=== PATIENT | female | born 1935 | race Caucasian/White ===

== ENCOUNTER → 2017-06-03 | Outpatient (CLI) | payer OTHER ==
[~2017-06-03] MED LIST: ALKA-SELTZER H1 EACH PO; ASPIR 8181 MG PO; CALCIUM 600 +1 EAC1 PO; CEROVITE SENIO1 EACH PO; CO Q-10100 MG PO; HAIR, SKIN & N1 EAC2 PO; HYDROXYCHLOROQ200 M1 PO; IBUPROFEN 200200 M1 PO; LOSARTAN POTASS50 MG PO; MAGOX 400400 MG PO; OMEPRAZOLE40 MG PO; SIMVASTATIN40 MG PO; SYNTHROID50 MCG PO; TOPROL XL25 MG PO; TRAZODONE HCL50 MG PO; VITAMIN B-12500 MCG PO; VITAMIN D1000 UNI1 PO; VITAMIN D35000 UNI1 PO; ZOLOFT100 MG PO
== END ==
LOC: ULTRA 04:53
DX: Z01.818 Encounter for other preprocedural examination (principal); I25.10 Atherosclerotic heart disease of native coronary artery without angina pectoris

== ENCOUNTER → 2019-10-16 | Outpatient (CLI) | payer OTHER ==
[~2019-10-16] MED LIST changes: +ASPIRIN EC325 M1 PO
== END ==
LOC: SJCVC 09:36
PROVIDERS: ATTEND Internal Medicine Cardiovascular Disease
DX: I25.10 Atherosclerotic heart disease of native coronary artery without angina pectoris (principal); I10 Essential (primary) hypertension; E78.00 Pure hypercholesterolemia, unspecified; K21.9 Gastro-esophageal reflux disease without esophagitis; E78.5 Hyperlipidemia, unspecified; M19.90 Unspecified osteoarthritis, unspecified site; E03.9 Hypothyroidism, unspecified; Z82.49 Family history of ischemic heart disease and other diseases of the circulatory system; Z79.82 Long term (current) use of aspirin; Z79.899 Other long term (current) drug therapy; Z87.891 Personal history of nicotine dependence

== ENCOUNTER → 2020-04-18 | Outpatient (CLI) | payer OTHER | LOC: SJCVCIMAG 09:00 | PROVIDERS: ATTEND Internal Medicine Cardiovascular Disease | DX: I08.3 Combined rheumatic disorders of mitral, aortic and tricuspid valves (principal); I11.9 Hypertensive heart disease without heart failure; R94.31 Abnormal electrocardiogram [ECG] [EKG]; I44.0 Atrioventricular block, first degree; I25.10 Atherosclerotic heart disease of native coronary artery without angina pectoris; E78.00 Pure hypercholesterolemia, unspecified; Z95.1 Presence of aortocoronary bypass graft; Z79.899 Other long term (current) drug therapy; Z87.891 Personal history of nicotine dependence ==